=== PATIENT | male | born 1970 | race Caucasian/White ===

== ENCOUNTER 2018-02-12 13:49 | Observation (INO) | payer OTHER ==
[2018-02-12] MEDS ORDERED: NS 1,000 ML IV ONE (14:04)
--- NOTE | 2018-02-12 14:04 | CPEKG ---
Heart Rate: 56 RR Interval: 1071 P-R Interval: 168 QRSD Interval: 104 QT Interval: 468 QTC Interval: 452 P [place]: 81 QRS [place]: -75 T Wave [place]: 59 EKG Severity - ABNORMAL ECG - EKG Impression: SINUS RHYTHM EKG Impression: PROBABLE LEFT ATRIAL ABNORMALITY EKG Impression: LEFT ANTERIOR FASCICULAR BLOCK EKG Impression: LEFT VENTRICULAR HYPERTROPHY EKG Impression: CONSIDER ANTERIOR INFARCT EKG Impression: BORDERLINE ST ELEVATION, LATERAL LEADS Electronically Signed By: Rosemary Wilkes 12-Feb-2018 18:42:26
[2018-02-12 14:19] LABS: PLATELET COUNT 242 10^3/uL (150-400)
--- NOTE | 2018-02-12 14:33 | EDPHY ---
H & P Stated Complaint: Syncope Time Seen by Provider: 02/12/18 14:04 HPI/ROS: CHIEF COMPLAINT: Syncope HISTORY OF PRESENT ILLNESS: 47-year-old male presents after a syncopal episode. He was walking when he began to feel woozy and then collapsed, striking his head on the ground. He awoke immediately and was not confused. No seizure-like activity. No chest pain or shortness of breath. He ate and drank normally today. No recent illness and no prior syncopal episode. He is in [employer] for the [employer] and plans to compete on Friday. REVIEW OF SYSTEMS: complete 10 point ROS negative except at noted in the HPI - Personal History Current Tetanus/Diphtheria Vaccine: No - Medical/Surgical History Hx Asthma: No Hx Chronic Respiratory Disease: No Hx Diabetes: No Hx Cardiac Disease: No Hx Renal Disease: No Hx Cirrhosis: No Hx Alcoholism: No - Social History Smoking Status: Former smoker - Physical Exam Exam: General Appearance: Alert, pleasant Head: Swelling and tenderness on the posterior aspect of the scalp, overlying small abrasion, no laceration. Eyes: Pupils equal and round, no conjunctival pallor or injection ENT, Mouth: Mucous membranes moist no facial bony tender Neck: No midline tenderness, range of motion without pain Respiratory: Lungs are clear to auscultation Cardiovascular: Regular rate and rhythm Gastrointestinal: Abdomen is soft and nontender Neurological: Alert, oriented x3, cranial nerves II through XII intact, motor 5 /5, sensory intact to light touch Skin: Warm and dry Extremities: Nontender, no pedal edema Psychiatric: Mood and affect normal Constitutional: Initial Vital Signs Temperature (C) 36.6 C 02/12/18 13:57 Heart Rate 52 L 02/12/18 13:57 Respiratory Rate 16 02/12/18 13:57 Blood Pressure 135/82 H 02/12/18 13:57 O2 Sat (%) 98 02/12/18 13:57 O2 Delivery Mode Room Air Allergies/Adverse Reactions: No Known Allergies Allergy (Unverified 02/12/18 14:02) Home Medications: Medication Instructions Recorded Cyanocobalamin [Vitamin B12 (*)] 1,000 mcg PO DAILY 02/12/18 Medical Decision Making - Diagnostics EKG Interpretation: EKG interpreted by me reveals sinus rhythm, rate 56, J point elevation in the anterior leads. ED Course/Re-evaluation: This patient presents after a syncopal episode with minimal prodromal symptoms. Pre-hospital rhythm strip reveals ST segment elevation in leads II and II, although the pre-hospital EKG is normal. He is currently asymptomatic. The cervical spine was cleared on arrival by me. He has no midline tenderness and range of motion without pain. Neuroimaging is not indicated in this patient, as he does not have a headache and neurologic exam is normal. Concern for ACS, given pre-hospital EKG changes. Also concerned because the patient would like to run the [employer] triathlon in 3 days, but I do not think it is mac for him to do so without further evaluation. Echocardiogram ordered. Dr. Mukul Méndez was consulted and will see the patient in the emergency department. Initial troponin is 0. This patient was seen by Dr. Méndez and the plan is for hospital admission for observation. Echocardiogram read by Dr. Méndez is unremarkable. The patient was asymptomatic throughout his emergency department stay. lunchroom monitor revealed normal sinus rhythm throughout. Differential Diagnosis: Differential diagnosis includes though is not limited to cardiac dysrhythmia, CVA, TIA, GI bleed, sepsis, hypoglycemia. - Data Points Laboratory Results: Laboratory Results 02/12/18 14:00 02/12/18 14:00 02/12/18 02/12/18 02/12/18 14:39 14:00 14:00 WBC RBC Hgb POC Hgb 15.6 gm/dL gm/dL (13.7-17.5) Hct POC Hct 46 % % (40-51) MCV MCH MCHC RDW Plt Count MPV Neut % (Auto) Lymph % (Auto) [place] % (Auto) Eos % (Auto) Baso % (Auto) Nucleat RBC Rel Count Absolute Neuts (auto) Absolute Lymphs (auto) Absolute Monos (auto) Absolute Eos (auto) Absolute Basos (auto) Absolute Nucleated RBC Immature Gran % Immature Gran # POC Sodium 143 mEq/L mEq/L (135-145) Sodium 142 mEq/L mEq/L (135-145) POC Potassium 3.9 mEq/L mEq/L (3.3-5.0) Potassium 4.4 mEq/L mEq/L (3.3-5.0) POC Chloride 105 mEq/L mEq/L (97-110) Chloride 109 mEq/L mEq/L (97-110) Carbon Dioxide 24 mEq/l mEq/l (22-31) Anion Gap 9 mEq/L mEq/L (8-16) POC BUN 18 mg/dL mg/dL (7-23) BUN 18 mg/dL mg/dL (7-23) Creatinine 0.9 mg/dL mg/dL (0.7-1.3) POC Creatinine 1.0 mg/dL mg/dL (0.7-1.3) Estimated GFR > 60 Glucose 78 mg/dL mg/dL (70-100) POC Glucose 85 mg/dL mg/dL (70-100) Calcium 9.5 mg/dL mg/dL (8.5-10.4) POC Troponin I 0.00 ng/mL ng/mL (0.00-0.08) 02/12/18 14:00 WBC 7.38 10^3/uL 10^3/uL (3.80-9.50) RBC 4.99 10^6/uL 10^6/uL (4.40-6.38) Hgb 15.4 g/dL g/dL (13.7-17.5) POC Hgb Hct 45.7 % % (40.0-51.0) POC Hct MCV 91.6 fL fL (81.5-99.8) MCH 30.9 pg pg (27.9-34.1) MCHC 33.7 g/dL g/dL (32.4-36.7) RDW 12.1 % % (11.5-15.2) Plt Count 242 10^3/uL 10^3/uL (150-400) MPV 10.4 fL fL (8.7-11.7) Neut % (Auto) 45.9 % % (39.3-74.2) Lymph % (Auto) 41.9 % % (15.0-45.0) [place] % (Auto) 8.8 % % (4.5-13.0) Eos % (Auto) 2.4 % % (0.6-7.6) Baso % (Auto) 0.9 % % (0.3-1.7) Nucleat RBC Rel Count 0.0 % % (0.0-0.2) Absolute Neuts (auto) 3.38 10^3/uL 10^3/uL (1.70-6.50) Absolute Lymphs (auto) 3.09 10^3/uL H 10^3/uL (1.00-3.00) Absolute Monos (auto) 0.65 10^3/uL 10^3/uL (0.30-0.80) Absolute Eos (auto) 0.18 10^3/uL 10^3/uL (0.03-0.40) Absolute Basos (auto) 0.07 10^3/uL 10^3/uL (0.02-0.10) Absolute Nucleated RBC 0.00 10^3/uL 10^3/uL (0-0.01) Immature Gran % 0.1 % % (0.0-1.1) Immature Gran # 0.01 10^3/uL 10^3/uL (0.00-0.10) POC Sodium Sodium POC Potassium Potassium POC Chloride Chloride Carbon Dioxide Anion Gap POC BUN BUN Creatinine POC Creatinine Estimated GFR Glucose POC Glucose Calcium POC Troponin I Medications Given: Discontinued Medications Sodium Chloride (Ns) 1,000 mls @ 0 mls/hr IV EDNOW ONE; Wide Open PRN Reason: Protocol Stop: 02/12/18 14:05 Last Admin: 02/12/18 14:24 Dose: 1,000 mls Point of Care Test Results: Chemistry 02/12/18 02/12/18 14:39 14:00 POC Sodium 143 mEq/L mEq/L (135-145) POC Potassium 3.9 mEq/L mEq/L (3.3-5.0) POC Chloride 105 mEq/L mEq/L (97-110) POC BUN 18 mg/dL mg/dL (7-23) POC Creatinine 1.0 mg/dL mg/dL (0.7-1.3) POC Glucose 85 mg/dL mg/dL (70-100) POC Troponin I 0.00 ng/mL ng/mL (0.00-0.08) ISTAT H&H 02/12/18 14:00 POC Hgb 15.6 gm/dL gm/dL (13.7-17.5) POC Hct 46 % % (40-51) Departure - Departure Disposition: Home, Routine, Self-Care Clinical Impression: Syncope Qualifiers: Syncope type: unspecified Qualified Code(s): R55 - Syncope and collapse Condition: Good
[2018-02-12] MEDS ORDERED: ACETAMINOPHEN 325 MG TAB PO PRN (15:41)
--- NOTE | 2018-02-12 15:59 | ECHO ---
[email or web address] [address] [address] Main: [phone] Fax: [email or web address] Echocardiogram Name: DELANEY GAINES MR#: [id number] Study Date: 02/12/2018 Study Time: 03:10 PM Date of : 1970 Age: 47 year(s) Height: 193 cm (76 in.) Weight: 83.92 kg (185 lb.) BSA: 2.14 m2 Gender: Male Examination: Echo Indication: eval cardiac function syncope Image Quality: Adequate Contrast: Requested by: Rosemary Wilkes BP: 138 mmHg/85 mmHg Heart Rate: Rhythm: Normal sinus rhythm Indication: eval cardiac function syncope Procedure Staff Vice President Of Marketing: Ligia Stockton [facility] Reading Physician: Aneesh Gómez MD Requesting Provider: Conclusions: Normal global systolic LV function. EF is 65 %. There is mild thickening of the mitral valve leaflets. Trivial to mild mitral regurgitation. Trivial to mild tricuspid valve regurgitation. The pulmonary artery pressure is normal. Measurements: Chambers Valvular Assessment AV/MV Valvular Assessment TV/PV Normal Normal Normal Name Value Range Name Value Range Name Value Range Ao Milvia (MM): 3.1 cm (2.2 cm-3.7 AV Vmax: 1.75 m/s (1 m/s-1.7 TR Vmax: 2.57 mm/s ( - ) cm) m/s) TR PGmax: 26 mmHg ( - ) IVSd (2D): 0.9 cm (0.6 cm-1.1 AV maxP mmHg ( - ) syst. PAP: 31 mmHg ( - ) cm) LVOT Vmax: 1.37 m/s (0.7 m/s-1.1 PV Vmax: 0.80 m/s (0.6 m/s-0.9 LVDd (2D): 4.7 cm (4.2 cm-5.9 m/s) m/s) cm) MV E Vmax: 0.86 m/s ( - ) PV PGmax: 3 mmHg ( - ) LVDs (2D): 3.2 cm (2.1 cm-4 MV A Vmax: 0.73 m/s ( - ) cm) MV E/A: 1.18 ( - ) LVPWd (2D): 0.9 cm (0.6 cm-1 cm) LVEF (BP): 65 % (>=55 %) RVDd(2D): 4.0 cm (1.9 cm-3.8 cmmm) Continued Measurements: Chambers Valvular Assessment AV/MV Valvular Assessment TV/PV Name Value Name Value Name Value LADs Lon.6 cm MV DecTime: 225 m/s CVP (est.): 5 mmHg Patient: DELANEY GAINES Study Date: 02/12/2018 Page 1 of 2 03:10 PM LA Area: 20.1 cm2 MV E/E' Septal: 8.00 LA Volume: 70 ml MV E/E' Lateral: 6.90 LA Volume Index: 32.7 ml/m2 RA Area: 21.0 cm2 Additional Vessels Name Value Ao Ascendin.3 cm Findings: Left Ventricle: Normal size left ventricle. No LV hypertrophy. Normal global systolic LV function. EF is 65 %. No regional wall motion abnormality. Normal diastolic LV function. Right Ventricle: Normal size right ventricle. Normal RV function. Left Atrium: The left atrium is normal in size. Right Atrium: The right atrium is normal in size. Mitral Valve: The mitral valve is normal in appearance and function. There is mild thickening of the mitral valve leaflets. Trivial to mild mitral regurgitation. No mitral stenosis is present. Aortic Valve: The aortic valve is normal in appearance and function. There is no significant aortic valve regurgitation. No aortic valve stenosis is present. Tricuspid Valve: The tricuspid valve is normal in appearance and function. Trivial to mild tricuspid valve regurgitation. The pulmonary artery pressure is normal. Right ventricular systolic pressure measures 31mmHg. Pulmonic Valve: The pulmonic valve is normal in appearance and function. There is no pulmonic regurgitation seen. Aorta: The aorta is normal. Normal size aortic root measuring 3.1 cm. Normal size ascending aorta measuring 3.3 cm. IVC: The IVC is dilated. Pericardium: No pericardial effusion. (No Signature Object) Patient: DELANEY GAINES Study Date: 02/12/2018 Page 2 of 2 03:10 PM [id number]
[2018-02-12] MEDS ORDERED: 1/2 NS 1,000 ML IV SCH (16:00)
--- NOTE | 2018-02-12 17:58 | GHP ---
[f rep st] HISTORY AND PHYSICAL DATE OF ADMISSION: 02/12/2018 INDICATIONS: Syncope. HISTORY OF PRESENT ILLNESS: The patient is a very pleasant 47-year-old male seen in the emergency de partment. He is originally from [place]. Currently, he and his family live in [place]. He is in the local area today to run the [employer] [place]lon. At his baseline, he is a very healthy individual. Katharina winslow exercises vigorously usually between 15 and 17 hours a week. He mixes his exercise up between cycl ing, swimming and running. He has usually been able to exercise vigorously without any difficulties. He has no known medical history, and takes no medications. He and his family arrived to [facility] 4-5 days ago. They spent the last several days up in [place]. He states that he has be en feeling well. They came down to the [place] area this morning and checked into their hotel. He w as walking with his family to the car to get their luggage when he abruptly felt lightheaded. He nam cribes a sensation similar as if he were to stand up very quickly. He lost consciousness for a very short period of time, awakened, oriented. There is no evidence of generalized tonic-clonic seizure a ctivity. He did injure his right neck and sustained a contusion, however, no significant injuries. I did not have chest pain and noted no palpitations or lightheadedness. EMS arrived on the scene. O n arrival, his 12-lead in the field demonstrated sinus rhythm with a left anterior fascicular block a nd no significant ST or T changes. A rhythm strip was performed. On the rhythm strip during the rid e in, there was a suggestion of J-point elevation. Here, he states he feels back to normal. He spec ifically states he never had chest discomfort or palpitations as part of this clinical syndrome. He has never had similar symptoms in the past. His initial troponin here is negative. PAST MEDICAL HISTORY: He is healthy without significant medical problems. MEDICATIONS: He uses no prescription or [id number] medications. SOCIAL HISTORY: He is and accompanied by his and son. He is originally from [place], katharina grant, has not lived in [place] in 25 years. His lives in [place]. 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 He does not smoke. He drinks alcohol sparingly. He does not abuse caffeine. 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 FAMILY HISTORY: Negative for premature atherosclerosis or sudden cardiac . PAST SURGICAL HISTORY: Noncontributory. REVIEW OF SYSTEMS: A 10-point review of systems was performed and is otherwise negative. PHYSICAL EXAMINATION: VITAL SIGNS: On arrival to the emergency department, his blood pressure was 1 35/82 with a heart rate of 52, room air saturations of 98%, and temperature of 36.6 degrees centigrad e. GENERAL: He is a very healthy, robust-appearing, 47-year-old male. HEENT: Normocephalic, atrau matic. He has anicteric sclerae. Oropharynx unremarkable. 2+ carotids. No jugular venous distenti on. No bruits. RESPIRATORY: Speaks in full sentences, using no accessory muscles. On auscultation , he has clear lung borges bilaterally. CARDIAC: Precordial inspection reveals that he has mild kyp hosis. PMI nondisplaced. On auscultation, he has a regular rate and rhythm without murmurs, gallops , or rubs. ABDOMEN: Soft, nontender with no masses or hepatosplenomegaly. EXTREMITIES: Warm witho ut edema. He has 2+ radial, dorsal pedal, and posterior tibial pulses. NEUROLOGIC: He is alert and oriented with a pleasant mood and affect. DATABASE: His electrocardiogram here demonstrates sinus bradycardia at 56 beats per minute with a le ft axis deviation of -75 degrees consistent with a left anterior fascicular block. There is late R-w ave progression. He has early repolarization. White blood cell count 7.38, hemoglobin 15.4, platele t count 242,000. Sodium 142, potassium 4.4, chloride 109, BUN 18, creatinine 0.9. Qwpbf-ah-elof tro ponin was negative. A bedside echocardiogram was performed. Preliminary review indicates that his e chocardiogram is normal. IMPRESSION: The patient is a 47-year-old male who, at his baseline, is very active and healthy with no known medical conditions. He is in the local area here to run the [employer] Triathlon. Earlier tod ay, he experienced a witnessed episode of syncope with a prodrome of lightheadedness. His workup her e indicates that he has evidence of conduction system disease in the form of left anterior fascicular block. His initial echocardiogram and troponins were negative. Overall, I think the most likely ca use of his episode of loss of consciousness was a vasovagal event in the setting of dehydration. He has received 2 L of fluid since arrival. He and his family are very concerned about this event and s pecifically how this event might impact his ability to run the [employer]athlon. At this point, I r ecommended that we place him in observation overnight. I would like to observe his rhythm further an d draw serial troponins throughout the evening. Depending on his clinical course, further recommenda tions will be made in the morning. We may consider a stress test prior to discharge. /[id number]/MODL
[2018-02-13 07:23] VITALS: BP 131/80
--- NOTE | 2018-02-13 08:52 | CPEKG ---
Heart Rate: 45 RR Interval: 1333 P-R Interval: 168 QRSD Interval: 104 QT Interval: 472 QTC Interval: 409 P [place]: 83 QRS [place]: -77 T Wave [place]: 59 EKG Severity - ABNORMAL ECG - EKG Impression: SINUS BRADYCARDIA EKG Impression: PROBABLE LEFT ATRIAL ABNORMALITY EKG Impression: LEFT ANTERIOR FASCICULAR BLOCK EKG Impression: LEFT VENTRICULAR HYPERTROPHY EKG Impression: ST ELEV, PROBABLE NORMAL EARLY REPOL PATTERN EKG Impression: COMPARED WITH 02/12/2018 NO SIGNIFICANT CHANGE Electronically Signed By: Maria Esther Siddiqui 14-Feb-2018 10:14:16
--- NOTE | 2018-02-13 10:00 | PDDCSUM ---
Discharge Summary Discharge Summary: History of present illness: 47-year-old male visiting the local area from [place] to participate in the [employer] triathlon scheduled for this Friday. He and his family arrived several days ago and went up to [place]. But there he was hiking and and doing some light jogging. They were up there for about 48 hr. Both he and his experienced a mild headache and slight dyspnea. Upon arrival to [place] they checked in their hotel. While he was walking to his car he experienced an episode of syncope. He had a prodrome of lightheadedness. He was unconscious for only a matter of seconds. On arrival to the emergency department here he was hemodynamically stable. No arrhythmias were identified. His initial ECG demonstrated a left anterior fascicular block. He was monitored on telemetry overnight. During the evening he had evidence of bradycardia. He remained asymptomatic. There were no significant arrhythmias noted. Serial troponins were negative. An echocardiogram was performed. There is a full and separately dictated report on the chart however this study was essentially normal. Prior to discharge he underwent an exercise treadmill test. He exercised in excess of 15 min on a Tomy protocol. He achieved 77% of his maximum predicted heart rate. He was asymptomatic during this procedure. He had normal hemodynamics. There were rare PVCs and early in recovery experienced an ectopic atrial arrhythmia and occasions of a junctional rhythm also asymptomatic. At the time of discharge he feels well and is back to his baseline. Ultimately, it was thought that his syncope was related to dehydration and that he experienced a vasovagal event. There were no additional therapeutic interventions during this hospitalization with the exception of the administration of 2 L of IV fluids. He is discharged in good health with no activity restrictions. With respect to his plans to participate in the [employer] triathlon, he has decided to cancel this event. He was advised to follow up with Cardiology when he returns home. He was given copies of his cardiovascular tests that were performed during this hospitalization.
== END 2018-02-13 11:00 | disposition home or self-care (01) ==
LOC: F2W 16:44
PROVIDERS: ADMIT Internal Medicine Cardiovascular Disease; ATTEND Internal Medicine Cardiovascular Disease
DX: R55 Syncope and collapse (principal); Z87.891 Personal history of nicotine dependence
CPT/HCPCS: 93005; 93017; 93306; G0378; 82435-PO; 82565-PO; 82947-PO; 84132-PO; 84295-PO; 84484-PO; 84520-PO; 85014-PO